=== PATIENT | female | born 1980 | race Hispanic/Latino ===

== ENCOUNTER 2021-01-27 15:51 | Emergency (ER) | payer SELFPAY ==
[2021-01-27 19:36] VITALS: BP 110/70
== END 2021-01-27 19:36 | disposition home or self-care (01) | DRG 90 ==
LOC: ED 15:51
DX: S06.0X0A Concussion without loss of consciousness, initial encounter (principal); S80.811A Abrasion, right lower leg, initial encounter; M25.562 Pain in left knee; M25.561 Pain in right knee; Y04.8XXA Assault by other bodily force, initial encounter

== ENCOUNTER 2021-04-23 12:50 | Emergency (ER) | payer OTHER ==
[2021-04-23] MEDS ORDERED: ZOFRAN4 MG/TAB PO (14:31)
[2021-04-23] MEDS ORDERED: VENTOLIN HFA IN (14:31)
[2021-04-23] MEDS ORDERED: DECADRON6 MG PO (14:31)
[2021-04-23 14:45] VITALS: BP 107/61
== END 2021-04-23 14:45 | disposition home or self-care (01) | DRG 179 ==
LOC: ED 12:50
DX: U07.1 COVID-19 (principal)

== ENCOUNTER 2022-02-02 07:27 | Emergency (ER) | payer SELFPAY ==
[~2022-02-02] VITALS: Ht 154.9 cm; Wt 64.8 kg
[~2022-02-02 07:27] MED LIST: DECADRON6 MG PO; VENTOLIN HFA IN; ZOFRAN4 MG/TAB PO
[2022-02-02 08:00] VITALS: BP 114/76
[2022-02-02 08:15] LABS: HEMATOCRIT 38.4 % (37.0-47.0); HEMOGLOBIN 12.7 g/dl (12.0-16.0); IMMATURE GRANULOCYTES 0.3 % (0.0-5.0); MEAN CELL VOLUME 89.5 fL CALC (80.0-100.0); MEAN CORPUSCULAR HGB 29.6 pG CALC (26.0-32.0); MEAN CORPUSCULAR HGB CONC 33.1 g/dL CAL (32.0-36.0); NEUT# 3.71 thou/uL (2.00-7.15); RED BLOOD COUNT 4.29 mill/uL (4.20-5.60); RED CELL DISTRI WIDTH 12.8 % (11.5-15.5)
[2022-02-02 08:31] LABS: ALBUMIN 3.6 g/dL (3.2-5.0); ALKALINE PHOSPHATASE 63 u/l (38-126); ANION GAP 10 (6-22 (CALC)); BILIRUBIN, TOTAL 0.6 mg/dL (0.0-1.4); BUN 6 mg/dL (7-17); BUN/CREATININE RATIO 12 (12-20 (CALC)); CARBON DIOXIDE 23 mmol/l (22-30); CHLORIDE 108 mmol/l (95-108); CREATININE 0.5 mg/dL (0.5-1.0); GFR FOR AFR.AMER. > 60 ML/MIN (>=60 (CALC)); GFR OTHER RACES > 60 ML/MIN (>=60 (CALC)); POTASSIUM 4.1 mmol/l (3.5-5.1); SGOT/AST 20 u/l (14-36); SODIUM 137 mmol/l (137-146)
[2022-02-02 08:37] VITALS: BP 105/67
[2022-02-02 09:00] VITALS: BP 104/64
[2022-02-02 09:04] LABS: URINE BILIRUBIN - DIPSTICK NEGATIVE (NEGATIVE); URINE BLOOD DIPSTICK NEGATIVE (NEGATIVE); URINE COLOR YELLOW; URINE GLUCOSE - DIPSTICK NEGATIVE (NEGATIVE); URINE KETONE NEGATIVE (NEGATIVE); URINE LEUK ESTERASE NEGATIVE (NEGATIVE); URINE NITRITE - DIPSTICK NEGATIVE (Negative); URINE PROTEIN - DIPSTICK NEGATIVE (NEG-TRACE); URINE UROBILINOGEN - DIPSTICK 0.2 E.U./dL (0.2)
[2022-02-02] MEDS ORDERED: ZITHROMAX Z-PA250 MG PO (09:19)
[2022-02-02 09:30] VITALS: BP 109/67
[2022-02-02] MEDS ORDERED: ROBITUSSIN AC10 ML PO (09:36)
== END 2022-02-02 09:38 | disposition home or self-care (01) | DRG 153 ==
LOC: ED 07:27
PROVIDERS: Emergency Medicine
DX: J06.9 Acute upper respiratory infection, unspecified (principal)